=== PATIENT | male | born 1960 | race Two or more races ===

== ENCOUNTER 2023-08-29 04:53 | Emergency (ER) | payer OTHER ==
[~2023-08-29] VITALS: Ht 175.3 cm; Wt 82.1 kg
[2023-08-29] MEDS ORDERED: DICLOFENAC POTA50 MG PO (09:17)
== END 2023-08-29 10:29 | disposition home or self-care (01) ==
LOC: ER 04:53
DX: M54.50 Low back pain, unspecified (principal)

== ENCOUNTER 2023-11-13 11:45 | Emergency (ER) | payer OTHER ==
[~2023-11-13] VITALS: Ht 175.3 cm; Wt 82.1 kg
[~2023-11-13 11:45] MED LIST: DICLOFENAC POTA50 MG PO
== END 2023-11-13 17:25 | disposition home or self-care (01) ==
LOC: ER 11:45
DX: M54.9 Dorsalgia, unspecified (principal)